=== PATIENT | female | born 1955 | race Caucasian/White ===

== ENCOUNTER 2016-11-22 16:00 | Emergency (ER) | payer MEDICARE, MEDICAID | END 2016-11-24 | disposition home or self-care (01) | LOC: ER 11-24 07:47 | DX: R51 Headache (principal); Z53.21 Procedure and treatment not carried out due to patient leaving prior to being seen by health care provider ==

== ENCOUNTER 2018-08-23 18:58 | Emergency (ER) | payer MEDICARE, MEDICAID ==
[~2018-08-23] VITALS: Ht 170.2 cm; Wt 82.0 kg
[2018-08-23 22:23] VITALS: BP 120/87
== END 2018-08-23 22:24 | disposition home or self-care (01) ==
LOC: ER 21:50
DX: S00.03XA Contusion of scalp, initial encounter (principal); M19.90 Unspecified osteoarthritis, unspecified site; Z96.652 Presence of left artificial knee joint; W01.0XXA Fall on same level from slipping, tripping and stumbling without subsequent striking against object, initial encounter; Y93.89 Activity, other specified; Y92.488 Other paved roadways as the place of occurrence of the external cause
CPT/HCPCS: 99284

== ENCOUNTER 2019-10-03 10:40 | Emergency (ER) | payer MEDICARE, MEDICAID ==
[~2019-10-03] VITALS: Ht 152.4 cm; Wt 77.0 kg
[2019-10-03] MEDS ORDERED: ACETAMINOPHEN 325MG TABLET PO ONE (11:15)
[2019-10-03] MEDS ORDERED: TRAMADOL 50MG TABLET PO ONE (12:30)
[2019-10-03 13:22] VITALS: BP 125/67
== END 2019-10-03 15:08 | disposition home or self-care (01) ==
LOC: ER 10:40
DX: S42.031A Displaced fracture of lateral end of right clavicle, initial encounter for closed fracture (principal); S00.83XA Contusion of other part of head, initial encounter; M19.90 Unspecified osteoarthritis, unspecified site; Z96.659 Presence of unspecified artificial knee joint; Z88.0 Allergy status to penicillin; V03.10XA Pedestrian on foot injured in collision with car, pick-up truck or van in traffic accident, initial encounter; Y93.89 Activity, other specified; Y92.488 Other paved roadways as the place of occurrence of the external cause
CPT/HCPCS: 70486; 71045; 73030; 73522; 99285